=== PATIENT | male | born 1980 | race Hispanic/Latino ===

== ENCOUNTER 2022-08-07 08:00 | Emergency (ER) | payer SELFPAY ==
[~2022-08-07] VITALS: Ht 160 cm; Wt 72.6 kg
[2022-08-07 08:27] LABS: BASOPHILS % (AUTO) 0.4 % (0.0-5.0); CREATININE 0.7 mg/dL (0.5-1.5); EOSINOPHILS % (AUTO) 4.9 % (0.0-8.0); HEMATOCRIT 32.1 % (42-54); LYMPHOCYTES % (AUTO) 18.3 % (21.0-51.0); MEAN CORPUSCULAR HEMOGLOBIN 31.1 pg (27.0-33.0); MEAN CORPUSCULAR HGB CONC 33.3 g/dL (32.0-36.0); MEAN CORPUSCULAR VOLUME 93.3 fL (79-99); MONOCYTES % (AUTO) 8.5 % (3.0-13.0); NEUTROPHILS % (AUTO) 67.3 % (40.0-77.0); PLATELET COUNT (AUTO) 337 K/uL (130-400); POTASSIUM 4.2 mmol/L (3.5-5.1); RED BLOOD CELL COUNT(AUTO) 3.44 MIL/uL (4.50-6.20); RED CELL DISTRIBUTION WIDTH 13.4 % (11.0-15.5)
[2022-08-07 08:32] LABS: ALBUMIN 2.9 g/dL (3.5-5.0)
[2022-08-07 08:48] LABS: INR 0.93 (0.85-1.15); PROTHROMBIN TIME 9.9 SEC (9.6-11.6)
[2022-08-07 08:50] LABS: PARTIAL THROMBOPLASTIN TIME 34.3 SEC (26.3-35.5)
[2022-08-07] MEDS ORDERED: IOHEXOL 350 MG/ML 100ML INFUS..BTL IV ONE (10:31)
[2022-08-07] MEDS ORDERED: CEFTRIAXONE 1G VIAL IVP ONE (13:00)
[2022-08-07] MEDS ORDERED: AMOX-426 PO (13:24)
[2022-08-07] MEDS ORDERED: IBUP-2070 PO (13:24)
[2022-08-07 14:03] VITALS: BP 109/56
== END 2022-08-07 13:41 | disposition home or self-care (01) ==
LOC: EDH 08:00
DX: S21.131D Puncture wound without foreign body of right front wall of thorax without penetration into thoracic cavity, subsequent encounter (principal); J18.1 Lobar pneumonia, unspecified organism; J90 Pleural effusion, not elsewhere classified; W34.00XD Accidental discharge from unspecified firearms or gun, subsequent encounter
CPT/HCPCS: 99285; 71270; 96374; 71045; 82550; 83735; 84484; 80053; 85025; 85378; 85610; 85730; 36415; 74176; 93005 ×2; J0696; Q9967

== ENCOUNTER 2023-05-11 07:28 | Emergency (ER) | payer OTHER ==
[~2023-05-11] VITALS: Ht 167.6 cm; Wt 70.3 kg
[~2023-05-11 07:28] MED LIST: AMOX-426 PO; IBUP-2070 PO
[2023-05-11] MEDS ORDERED: ACETAMINOPHEN 325 MG TAB ONE (08:03)
[2023-05-11 08:08] VITALS: BP 114/76; PULSE 70; RESP 14; O2SAT 100
[2023-05-11] MEDS ORDERED: IBUP-2070 PO (08:23)
[2023-05-11] MEDS ORDERED: ACETAMINOPHEN 325 MG TAB PO ONE (08:30)
== END 2023-05-11 08:30 | disposition home or self-care (01) ==
LOC: EDH 07:28
DX: R51.9 Headache, unspecified (principal); Z79.899 Other long term (current) drug therapy; Z90.49 Acquired absence of other specified parts of digestive tract
CPT/HCPCS: 99282